=== PATIENT | male | born 2000 | race Caucasian/White ===

== ENCOUNTER 2022-05-18 17:48 | Inpatient (IN) | payer BC ==
[2022-05-18] MEDS ORDERED: Ondansetron PF 4 MG/2 ML Vial IVP PRN (20:37)
[2022-05-18] MEDS ORDERED: Melatonin 3 MG TAB PO PRN (20:40)
[2022-05-18] MEDS ORDERED: Cyclobenzaprine 10 MG TAB PO PRN (20:40)
[2022-05-18 20:52] VITALS: BMI 28.8
[2022-05-18] MEDS ORDERED: Morphine 4 MG/ML VIAL SLOW IVP PRN (21:30)
[2022-05-18] MEDS: Sodium Chloride 0.9% 1,000 ML IV SCH (21:32)
[2022-05-18] MEDS: Gabapentin 300 MG CAP PO SCH (21:33)
[2022-05-18] MEDS: Famotidine/PF 20 mg/2ml Vial SLOW IVP SCH (21:34)
[2022-05-18] MEDS ORDERED: Ciprofloxacin HCL/Dexameth Otic Drops 7.5 ml Bottle L EAR SCH (21:45)
[2022-05-18] MEDS ORDERED: TETANUS, DIPHTHERIA TOX,ADULT (TDVAX) 0.5 ML VIAL IM ONE (22:00)
[2022-05-18] MEDS ORDERED: hydrALAZINE 20 MG/ML VIAL SLOW IVP PRN (22:20)
[2022-05-18] MEDS: Acetaminophen/Codeine 30-300mg Tablet PO SCH (23:48)
[2022-05-18] MEDS: Acetaminophen 325 MG TAB PO SCH (23:49)
[2022-05-18] MEDS ORDERED: Acetaminophen 500 MG TAB PO SCH (23:59)
[2022-05-19 04:01] LABS: #Lymphocytes 1.6 thou/uL (1.20-3.40); #Monocytes 1.1 thou/uL (0.11-0.59); #Neutrophils 10.1 thou/uL (1.40-6.50); %Basophils 0.2 % (0.0-1.0); %Eosinophils 0.3 % (0.0-10.0); %Lymphocytes 12.2 % (28.0-48.0); %Monocytes 8.8 % (0.0-4.0); %Neutrophils 78.6 % (31.0-61.0); Hemoglobin 14.8 g/dL (14.0-18.0); Mean Corpuscular Hemoglobin 31.1 pg (25.0-35.0); Mean Corpuscular Volume 91.4 fl (78.0-98.0); Mean Platelet Volume 7.8 fL (7.4-10.4); Platelet Count 265 thou/uL (130-400); RBC Distribution Width 11.6 % (11.5-14.5); Red Blood Cell (RBC) Count 4.77 mill/uL (4.00-5.20); White Blood Cell (WBC) Count 12.8 thou/uL (4.8-10.8)
[2022-05-19 04:12] LABS: INR-International Normal Ratio 1.1; Prothrombin Time 14.6 sec (12.0-14.7)
[2022-05-19 04:13] LABS: PTT 30.7 sec (22.9-36.1)
[2022-05-19 04:57] LABS: Anion Gap 11 mmol/L (10-20); BUN (Urea Nitrogen) 16 mg/dL (8.9-20.6); Calc. Creatinine Clearance 175 mL/min (70-130); Calcium 8.8 mg/dL (7.8-10.44); Carbon Dioxide 24 mmol/L (22-29); Chloride 105 mmol/L (98-107); Estimated GFR 115; Glucose 125 mg/dL (70-105); Magnesium 1.9 mg/dL (1.7-2.2); Potassium 4.1 mmol/L (3.5-5.1); Sodium 136 mmol/L (136-145)
[2022-05-19 04:58] LABS: Phosphorus 3.8 mg/dL (2.3-4.7)
[2022-05-19] MEDS: Acetaminophen/Codeine 30-300mg Tablet PO SCH ×2 (06:19→11:28)
[2022-05-19] MEDS: Acetaminophen 325 MG TAB PO SCH ×2 (06:20→11:33)
[2022-05-19] MEDS: Sodium Chloride 0.9% 1,000 ML IV SCH (06:20)
[2022-05-19 06:32] VITALS: TEMP 97.8
[2022-05-19] MEDS ORDERED: FLU VACC QS2022-23(6MOS UP)/PF 60 MCG/0.5 ML SYRINGE IM ONE (09:00)
[2022-05-19] MEDS ORDERED: Ciprofloxacin HCL/Dexameth Otic Drops 7.5 ml Bottle L EAR SCH (09:00)
[2022-05-19] MEDS ORDERED: Polyethylene Glycol 3350 17 GM Packet PO SCH (09:00)
[2022-05-19] MEDS: Famotidine/PF 20 mg/2ml Vial SLOW IVP SCH (09:45)
[2022-05-19] MEDS: Gabapentin 300 MG CAP PO SCH (09:46)
[2022-05-19 20:06] VITALS: BP 102/64
== END 2022-05-19 16:11 | disposition home or self-care (01) | DRG 83 ==
LOC: CCU 17:48
PROVIDERS: ADMIT Surgery; ATTEND Surgery
DX: S06.5X9A Traumatic subdural hemorrhage with loss of consciousness of unspecified duration, initial encounter (principal); S09.22XA Traumatic rupture of left ear drum, initial encounter; S06.6X9A Traumatic subarachnoid hemorrhage with loss of consciousness of unspecified duration, initial encounter; R40.2343 Coma scale, best motor response, flexion withdrawal, at hospital admission; R40.2143 Coma scale, eyes open, spontaneous, at hospital admission; R40.2243 Coma scale, best verbal response, confused conversation, at hospital admission; G93.89 Other specified disorders of brain; S02.19XA Other fracture of base of skull, initial encounter for closed fracture; Y93.51 Activity, roller skating (inline) and skateboarding; V00.131A Fall from skateboard, initial encounter
CPT/HCPCS: 36415; 70450; 80048; 83735; 84100; 84146; 85025; 85610; 85730; 90714; J7050; S0028; U0003; U0005